=== PATIENT | female | born 1995 | race Caucasian/White ===

== ENCOUNTER 2021-09-21 22:43 | Emergency (ER) | payer SELFPAY ==
[~2021-09-21] VITALS: Ht 157.5 cm; Wt 67.1 kg
[2021-09-21] MEDS ORDERED: EPINEPHRINE 0.3 MG/0.3 ML PEN.INJCTR IM STA (22:54)
[2021-09-21] MEDS ORDERED: FAMOTIDINE 20 MG/2 ML VIAL IV STA (22:55)
[2021-09-21] MEDS ORDERED: METHYLPREDNISOLONE SOD SUCC 125 MG/2ML VIAL IV STA (22:55)
[2021-09-21] MEDS ORDERED: SODIUM CHLORIDE 0.9% 1000ML 1,000 ML IV STA (22:57)
[2021-09-21] MEDS ORDERED: DIPHENHYDRAMINE HCL INJ 50 MG/ML VIAL IV ONE (23:00)
[2021-09-21] MEDS ORDERED: EPINEPHRINE HCL 1:1000 1ML 1 MG/ML AMP ONE (23:00)
[2021-09-22] MEDS ORDERED: PREDNISONE50 MG PO (00:01)
[2021-09-22] MEDS ORDERED: BENADRYL25 M1 PO (00:01)
[2021-09-22] MEDS ORDERED: EPINEPHRIN0.3 MG/0.3 IM (00:01)
[2021-09-22] MEDS ORDERED: VENTOLIN HFA18 GM INH (00:01)
[2021-09-22 00:37] VITALS: BP 121/55
== END 2021-09-22 00:12 | disposition home or self-care (01) ==
LOC: ER 22:54
DX: T78.2XXA Anaphylactic shock, unspecified, initial encounter (principal)
CPT/HCPCS: 93005; 99283; J0171